=== PATIENT | male | born 1985 | race African-American/Black ===

== ENCOUNTER 2019-12-10 01:36 | Emergency (ER) | payer OTHER ==
[~2019-12-10] VITALS: Ht 185.4 cm; Wt 74.0 kg
[2019-12-10] MEDS ORDERED: ONDANSETRON 4MG ODT PO ONE (02:15)
[2019-12-10 03:51] LABS: BASOPHILS % 0.5 % (0.0-2.0); EOSINOPHILS % 0.2 % (0.0-5.0); HEMATOCRIT. 43.6 % (42.0-52.0); LYMPHOCYTES % 20.6 % (20.0-50.0); MEAN CORPUSCULAR HEMOGLOBIN 28.3 pg (28.0-32.0); MEAN PLATELET VOLUME 9.9 fl (7.4-10.4); MONOCYTES % 2.7 % (2.0-8.0); PLATELET 184 x1000/uL (130-400); RED BLOOD CELL COUNT 4.95 mill/uL (4.7-6.1); RED CELL DISTRIBUTION WIDTH 14.1 % (11.6-14.6)
[2019-12-10 04:48] LABS: CHLORIDE 109 mEq/L (98-107)
[2019-12-10 05:33] VITALS: BP 124/76
== END 2019-12-10 05:35 | disposition home or self-care (01) ==
LOC: ER 01:51
DX: R11.2 Nausea with vomiting, unspecified (principal); K29.70 Gastritis, unspecified, without bleeding
CPT/HCPCS: 36415; 80053; 83690; 84484; 85025; 93005; 99284; Q0162